=== PATIENT | male | born 1960 | race Caucasian/White ===

== ENCOUNTER 2016-06-13 13:18 | Emergency (ER) | payer BC ==
[~2016-06-13] VITALS: Ht 182.9 cm; Wt 98.0 kg
[2016-06-13 13:23] VITALS: BP 155/93; PULSE 80; RESP 16; TEMP 98.9; O2SAT 98
--- NOTE | 2016-06-13 14:14 | PD ---
HPI Chief Complaint: Musculoskeletal Complaint Time Seen by Provider: 14:14 Travel History International Travel<30 days: No Contact w/Intl Traveler<30days: No Traveled to known affect area: No History of Present Illness HPI 55-year-old male presents to the ED for evaluation of 3 day history of right great toe pain, right foot swelling, right posterior calf pain. Onset gradual. Patient denies numbness, tingling, weakness, limitations to range of motion of the foot or toe. Denies injury to the area. Denies recent history of immobilization. Patient states that he was seen at the [facility] today with the physician was concerned for DVT. Denies chronic health problems, takes no daily medications. NKDA. PFSH Past Medical History Arthritis: Yes Past Surgical History Appendectomy: Yes (1971) Social History Alcohol Use: Yes (BEER 4X'S WEEK) Tobacco Use: No Allergies-Medications (Allergen,Severity, Reaction): Coded Allergies: No Known Allergies (Unverified , 06/13/16) Reported Meds & Prescriptions Reported Meds & Active Scripts Active Indomethacin 50 Mg Cap 50 Mg PO TID 7 Days Take with food, milk, or antacids to decrease stomach adverse effects. Review of Systems Except as stated in HPI: all other systems reviewed are Neg Physical Exam Narrative GENERAL: Well-nourished, well-developed white male in no acute distress. SKIN: Warm and dry. HEAD: Normocephalic. EYES: No scleral icterus. No injection or drainage. NECK: Supple, trachea midline. No JVD or lymphadenopathy. CARDIOVASCULAR: Regular rate and rhythm without murmurs, gallops, or rubs. 2+ DP and radial pulses bilaterally. RESPIRATORY: Breath sounds clear and equal bilaterally. No accessory muscle use. GASTROINTESTINAL: Abdomen soft, non-tender, nondistended. MUSCULOSKELETAL: No cyanosis. Edema, mild erythema and tenderness to palpation of the right great toe. Positive right-sided Homans sign. BACK: Nontender without obvious deformity. No CVA tenderness. Data Data Last Documented VS Vital Signs Date Time Temp Pulse Resp B/P Pulse Ox O2 Delivery O2 Flow Rate FiO2 06/13/16 13:23 98.9 80 16 155/93 98 Orders Hip, Uni(Ap&Lat) Wo Ap Pelvis (06/13/16 14:20) Toe (Min 2vws) (06/13/16 14:20) Us Leg Venous Doppler (3/11/17 14:20) [facility] Medical Decision Making Medical Screen Exam Complete: Yes Emergency Medical Condition: Yes Differential Diagnosis Gout versus osteo-arthritis versus septic arthritis versus DVT versus other Narrative Course 55-year-old male presents to the ED for evaluation of 3 day history of right great toe pain, right foot swelling, right posterior calf pain. Onset gradual. Patient denies numbness, tingling, weakness, limitations to range of motion of the foot or toe. Denies injury to the area. Denies recent history of immobilization. Patient states that he was seen at the [facility] today with the physician was concerned for DVT. Vitals reviewed. Physical exam reveals a nontoxic-appearing white male in no acute distress. Patient is tender to palpation of the MP joint of the great toe of the right leg. There is moderate edema to the ankle. Also endorses pain with home in testing of the right side. Tender to palpation of the right hip as well. I have a very low suspicion that this is DVT, however the patient does request ultrasound. X-ray of the right great toe and right hip reveal no bony injury per radiology read. Ultrasound of the right lower extremity reveals no DVT per radiology read. This is gout. Patient was prescribed indomethacin 50 mg 3 times a day 7 days. He says instructed to take the medication as prescribed, avoid red meat, beer , shellfish, follow up with the primary care provider. He indicated understanding of instructions and was amenable to plan of care. He is stable and discharged home. Diagnosis Primary Impression: Gout of big toe Referrals: Primary Care Physician Patient Instructions: General Instructions, Gout (ED) Additional Instructions: Rest, hydrate. Take medication as prescribed. Avoid red meat, beer, shellfish. Follow-up with your primary care provider this week. Return to the ED for any urgent emergent medical condition. Med/Other Pt SpecificInfo: Prescription(s) given Scripts Indomethacin 50 Mg Cap50 Mg PO TID 7 Days Ref 0 Take with food, milk, or antacids to decrease stomach adverse effects. Prov:Sal Mireles MD 06/13/16 Disposition: 01 DISCHARGE HOME Condition: Stable Lupis Soni Jun 13, 2016 14:14
--- NOTE | 2016-06-13 15:04 | RADHPO ---
EXAM DATE/TIME: 06/13/2016 14:37 [facility] COMPARISON: No previous studies available for comparison. INDICATIONS : Off and on right hip pain for 2 years MEDICAL HISTORY : None. SURGICAL HISTORY : None. ENCOUNTER: Initial ACUITY: >1 year PAIN SCORE: 10/10 LOCATION: Right hip FINDINGS: A two view examination of the right hip was performed. The primary and secondary trabecular pattern of the femoral neck is intact. The hip joint is of normal width without significant sclerosis or bon y hypertrophy. The acetabulum is grossly intact. CONCLUSION: Radiographic appearance of the right hip is within normal limits. Stefano Caraballo MD on June 13, 2016 at 15:02 Board Certified Radiologist. This report was verified electronically.
--- NOTE | 2016-06-13 15:05 | RADHPO ---
EXAM DATE/TIME: 06/13/2016 14:41 [facility] COMPARISON: No previous studies available for comparison. INDICATIONS : Sudden onset of right big toe pain and swelling, no known injury MEDICAL HISTORY : None. SURGICAL HISTORY : None. ENCOUNTER: Initial ACUITY: 4 - 6 days PAIN SCORE: 10/10 LOCATION: Right big toe FINDINGS: Examination of the first digit of the right foot demonstrates no evidence of fracture or dislocation. No radiopaque foreign bodies are seen. The soft tissues are intact. CONCLUSION: Radiographic appearance of the right great toe is within normal limits. Stefano Caraballo MD on June 13, 2016 at 15:03 Board Certified Radiologist. This report was verified electronically.
--- NOTE | 2016-06-13 16:03 | RADHPO ---
EXAM DATE/TIME: 06/13/2016 15:41 [facility] COMPARISON: No previous studies available for comparison. INDICATIONS : Right lower extremity edema. MEDICAL HISTORY : Arthritis. SURGICAL HISTORY : Appendectomy. ENCOUNTER: Initial ACUITY: 3 days PAIN SCORE: 3/10 LOCATION: Right leg. TECHNIQUE: Venous ultrasound of the leg was performed from the inguinal ligament to the proximal calf. Real-yael e, color Doppler and spectral tracing, compression and augmentation techniques were used. FINDINGS: There is normal compressibility of the deep venous system from the inguinal region to the proximal ca lf. No echogenic clot is seen in the lumen of the common femoral, femoral, popliteal, and posterior tibial veins. There is a normal response of the venous system to proximal and distal augmentation an d respiration. CONCLUSION: No DVT of the right lower extremity. Stefano Caraballo MD on June 13, 2016 at 16:01 Board Certified Radiologist. This report was verified electronically.
[2016-06-13] MEDS ORDERED: INDO50CA PO (16:12)
== END 2016-06-13 16:21 | disposition home or self-care (01) ==
LOC: PHEFT 13:18
DX: M10.9 Gout, unspecified (principal)
CPT/HCPCS: 73502; 73660; 93971